=== PATIENT | female | born 1940 | race African-American/Black ===

== ENCOUNTER 2017-12-05 07:43 | Day surgery (SDC) | payer MEDICARE, BC ==
[~2017-12-05] VITALS: Ht 160 cm; Wt 63.5 kg
--- NOTE | ~2017-12-05 | OP ---
PATIENT NAME: CLAUDIO KUO MEDICAL RECORD: [id number] :42 LOCATION:D.OPS ADMISSION DATE: SURGEON: MADALYN CHEUNG MD DATE OF OPERATION: 12/05/2017 REFERRING PHYSICIAN: Miranda Ca MD PREOPERATIVE DIAGNOSIS: Chronic kidney disease IV. POSTOPERATIVE DIAGNOSIS: Chronic kidney disease IV. OPERATION PERFORMED: Creation of a left brachiobasilic Mark type AV fistula as the first of 2 planned operations to construct a brachial to translocated basilic vein AV fistula. SURGEON: Madalyn Cheung MD ANESTHESIA: Regional block and general anesthesia per Dr. Nina and SOUND CUTTER. PREOPERATIVE NOTE: This 77-year-old female patient has chronic renal disease and it is assumed that she is going to require dialysis soon. She was referred for dialysis access and she is brought to the operating room at this time with plans to construct an AV fistula in her left arm. She has had vein mapping and I think it is likely will need to do a brachial to basilic vein fistula, although brachiocephalic as possible. Under anesthesia in supine position, the patient was prepped and draped in sterile manner. Nitroglycerin paste was applied to the skin of the arm and forearm and a [place] drain was used as a proximal venous tourniquet. I performed ultrasound and noted that the cephalic vein was smaller than the basilic but still potentially usable. It was fairly large in the forearm, but the radial artery was small. Also, unfortunately, the median cubital vein had been used this morning by the lab for preop lab vena puncture. The basilic vein was therefore more attractive having not been just recently traumatized. I made a transverse incision and exposed the basilic vein and the brachial artery. The artery was controlled with doubly looped Silastic tapes. It was opened and flushed with heparinized saline. The vein was dissected from the surrounding tissues and it was ligated distally at the junction of the median antebrachial vein and median cubital vein. The vein was then transected and bevelled. It was flushed with heparinized saline and treated with topical papaverine. An atraumatic clamp was used to prevent backbleeding. The vein was then anastomosed end of vein to side of artery with running 7-0 Prolene and when that was completed and the occluding loops and clamps were released, excellent flow was established in this new fistula. The suture line was hemostatic. There was good pulsatile continuous flow in the proximal brachial artery and within the graft and there was a pulsatile high resistance flow in the distal brachial artery and in the radial artery at the wrist. There was a significant diminishment and amplitude and pulsatility at the wrist with occlusion of the graft, but there was maintenance of pulsatile Doppler flow and there was really no evidence of ischemia. The wound was irrigated with Ancef, gentamicin solution and infiltrated and irrigated with 0.25% Marcaine without epinephrine. Wound closure was completed with interrupted inverted 3-0 Vicryl and running intracuticular 4-0 Stratafix and Dermabond glue. The wound was dressed with Maxorb Ag, Tegaderm, and Cavilon skin prep. The patient was awakened and taken to the recovery room. OPERATIVE REPORT [id number] CLAUDIO KUO She will be allowed to go home later today and return to see me in my office in 2 weeks. She is to continue all of her same medications, diet, activities, etc. She can leave the initial operative dressing alone intact until she comes back to see me in my office in 2 weeks. She is advised to use ice off and on on the area of the incision and to take Tylenol p.r.n. for pain. TRANSINT:[id number] Voice Confirmation ID: [id number] DOCUMENT ID: [id number] MADALYN CHEUNG MD at 1645 CC: MIRANDA CA MD [id number] DICTATION DATE: 12/05/17 1427 COOLER CONVEYOR LOADER: 12/05/17 1631 REG [facility] [address] [place] [address]
[2017-12-05 07:59] LABS: BASOPHILS 0.3 % (0-2); EOSINOPHILS 3.5 % (0-7); HEMATOCRIT 28.1 % (36.0-48.0); HEMOGLOBIN 8.9 g/dL (12-16); IMMATURE GRANULOCYTES 0.3 % (0-5); LYMPHOCYTES 14.6 % (15-50); MCH 26.9 pg (26.0-34.0); MCHC 31.7 g/dL (31.0-37.0); MCV 84.9 fL (80.0-100.0); MEAN PLATELET VOLUME 9.2 fL (7.4-10.4); MONOCYTES 8.8 % (2-11); NEUTROPHILS 72.5 % (40-80); PLATELET COUNT 378 10x3/uL (130-400); RBC 3.31 10x6/uL (4.00-5.40); RDW 15.3 % (11.5-14.5); WBC 10.9 10x3/uL (4.8-10.8)
[2017-12-05 08:10] LABS: ANION GAP 18.9 mmol/L (8-16); CALCIUM 7.9 mg/dL (8.5-10.1); CARBON DIOXIDE 18.2 mmol/L (21.0-32.0); CREATININE - SERUM 8.4 mg/dL (0.6-1.3); POTASSIUM - SERUM 4.1 mmol/L (3.5-5.1)
[2017-12-05 08:24] LABS: INR 1.13 (0.85-1.17); PROTIME 14.1 SECONDS (11.6-15.0)
[2017-12-05] MEDS ORDERED: PRINIVIL20 MG PO (09:37)
[2017-12-05] MEDS ORDERED: COREG25 MG PO (09:38)
[2017-12-05] MEDS ORDERED: HYDRALAZINE HCL50 MG PO (09:38)
[2017-12-05] MEDS ORDERED: CILOSTAZOL50 MG PO (09:38)
[2017-12-05] MEDS ORDERED: GLIMEPIRIDE2 MG PO (09:39)
[2017-12-05] MEDS ORDERED: SYNTHROID25 MCG PO (09:40)
[2017-12-05] MEDS ORDERED: FUROSEMIDE20 MG (09:40)
[2017-12-05] MEDS ORDERED: ZETIA10 MG PO (09:41)
[2017-12-05] MEDS ORDERED: PLAVIX75 MG PO (09:41)
[2017-12-05] MEDS ORDERED: NIASPAN500 MG PO (09:42)
[2017-12-05 09:47] VITALS: BP 139/64; Ht 160 cm; Wt 63.5 kg
== END 2017-12-05 16:25 | disposition home or self-care (01) ==
LOC: D.OPS 07:43
PROVIDERS: Internal Medicine Nephrology
DX: N18.4 Chronic kidney disease, stage 4 (severe) (principal); Z01.812 Encounter for preprocedural laboratory examination

== ENCOUNTER 2018-02-17 06:50 | Day surgery (SDC) | payer MEDICARE, BC ==
[~2018-02-17] VITALS: Ht 312.4 cm; Wt 61.2 kg
--- NOTE | ~2018-02-17 | MORECARE ---
CASE MANAGEMENT DISCHARGE SUMMARY PATIENT: CLAUDIO KUO UNIT: [id number] ADM DATE: 02/17/18 AGE: 77 : 41 SEX: F ROOM/BED: D.1218 AUTHOR: AMRITA GILES PHYSICIAN: REFERRING PHYSICIAN: MIRANDA BARNARD MD DATE OF SERVICE: 02/18/18 Discharge Plan Patient Name: CLAUDIO KUO Facility: [facility]:[place] : 1940 Planned Disposition: Home with Home Health Anticipated Discharge Date: 02/18/18 Discharge Date: Expected LOS: 15 Initial Reviewer: [id number] Initial Review Date: 02/18/2018 Generated: 02/18/18 6:16 pm Comments DCP- Discharge Planning Updated by [email or web address]: Tino Harkins on 02/18/18 4:[address] Patient Name: CLAUDIO KUO Admission Status: Elective Accout number: [id number] Admission Date: 02-03-2018 : 1940 Admission Diagnosis: Attending: MIRANDA BARNARD Current LOS: 15 Anticipated DC Date: 02-18-2018 Planned Disposition: Home with Home Health Primary Insurance: MEDICARE A & B PLANNED EXTERNAL PROVIDER: [facility] Discharge Planning Comments: CM RECEIVED HOME HEALTH ORDER, MET WITH PT IN ROOM TO DISCUSS DISCHARGE PLANNING AND NEEDS. PT REPORTS LIVING AT HOME INDEPENDENTLWITH HER ADULT DAUGHTER IN [place] FOR NOW. PT HAS CANE AND WHEELCHAIR WITH NO MEDICAL EQUIPMENT PROVIDER PREFERENCE. PT HAS [facility] THAT ASSISTED WITH GETTING THE WHEELCHAIR AFTER THEIR FIRST VISIT BUT NEVER CAME BACK. CM DISCUSSED AVAILABILITY OF HOME HEALTH, REHAB SERVICES AND MEDICAL EQUIPMENT. PT WOULD LIKE [facility] IF THEY WILL COME BACK OUT AND IF NOT, NOT PREFERENCE ON COMPANY. CHOICE LETTER SIGNED. PT REPORTS HER DAUGHTER WILL PICK HER UP FOR DISCHARGE HOME. CM CALLED [facility], SPOKE TO ALICIA WHO REPORTS PT IS NOT ACTIVE WITH THEM AND THEY DO NOT HAVE NURSING AVAILABILITY. CM CALLED [facility], , SPOKE TO JULY WHO DID NOT THINK DRAIN AND WOUND CARE WOULD BE AN ISSUE AND THEY DO HAVE NURSING AVAILABILITY FOR ADMIT TOMORROW. CM FAXED REFERRAL TO [facility] AT [phone]. PERSONAL DRIVER NOTIFIED. Reiki Practitioner: Tino Harkins Appended by Tino Harkins on 02/18/2018 15:09 MILITARY EQUIPMENT SPECIALIST: FOR DISCHARGE, FAX DISCHARGE INFORMATION TO [facility] [employer] AT [phone]. JACKIE HARKINS CASE MANAGEMENT Appended by Tino Harkins on 02/18/2018 17:08 MILITARY EQUIPMENT SPECIALIST: CM FAXED DISCHARGE INFORMATION AND H& P TO [employer] [employer] AT [phone]. PT NOTIFIED. CM SPOKE TO JULY OF [facility] [employer] WHO REPORTS THEY WILL ADMIT ON FRIDAY; CM SPOKE TO BEDSIDE NURSE WHO WILL INSTRUCT PT AND DAUGHTER ON DRAIN CARE AND HOME HEALTH ADMIT FRIDAY SHOULD BE OK. CM SPOKE TO PT WHO IS IN AGREEMENT WITH PLAN. NO FURTHER NEEDS IDENTIFIED. TINO HARKINS CASE MANAGEMENT DCPIA - Discharge Planning Initial Assessment Updated by COREY: Tino Harkins on 02/18/18 2:53 pm * Is the patient Alert and Oriented? Yes * How many steps to enter\exit or inside your home? * PCP DR. VASQUEZ AT [facility] IN [place] * Pharmacy [facility] AT DISCHARGE OR [facility] IN [place] * Preadmission Environment Home with Family * ADLs Independent * Equipment Cane Wheelchair * Other Equipment NO MEDICAL EQUIPMENT PROVIDER PREFERENCE * List name and contact numbers for known caregivers / representatives who currently or will assist patient after discharge: JANET KUO, DTR, [phone] [address] WITH DTR: [phone], [place] [phone] * Community resources currently utilized Other * Please name any agencies selected above. OUTPATIENT DAILYSIS, [facility] IN [place], [facility], 3PM, [facility] * Additional services required to return to the preadmission environment? Yes * Can the patient safely return to the preadmission environment? Yes * Has this patient been hospitalized within the prior 30 days at any hospital? No Coverage Notice Reviewer: [id number] Rahel Harkins Notice Issued Date-Time: 02/18/2018 10:00 Notice Type: Patient Choice Letter Notice Delivered To: Patient Relationship to Patient: Language Specialist Name: Delivery Method: HAND - Hand Delivered Chela Days: Prior Verbal Notification: Recipient Understood Notice: Yes Recipient Signature: Yes Med Rec Note Co-signed by Attending: Coverage Notice Comment: [facility] OR ANY OTHER ACCEPING AGENCY IN [place] Last DP export: 02/18/18 4:08 Patient Name: CLAUDIO KUO Page [phone] at 1717 All edits/amendments must be made on the electronic document DICTATION DATE: 02/18/181715 GROUP INSURANCE SPECIALIST: GRETCHEN 02/18/181715 RPT#: [id number] DC DATE: STATUS: REG [facility] [address] [place] [address] END OF REPORT
--- NOTE | ~2018-02-17 | MORECARE ---
CASE MANAGEMENT DISCHARGE SUMMARY PATIENT: CLAUDIO KUO UNIT: [id number] ADM DATE: 02/17/18 AGE: 77 : 41 SEX: F ROOM/BED: D.0003 AUTHOR: CHAN,DOC PHYSICIAN: REFERRING PHYSICIAN: MIRANDA BARNARD MD DATE OF SERVICE: 02/18/18 Discharge Plan Patient Name: CLAUDIO KUO Facility: [facility]:[place] : 1940 Planned Disposition: Home with Home Health Anticipated Discharge Date: 02/18/18 Discharge Date: Expected LOS: 15 Initial Reviewer: [email or web address] Initial Review Date: 02/18/2018 Generated: 02/18/18 3:54 pm DCPIA - Discharge Planning Initial Assessment Updated by [email or web address]: Tino Michael on 02/18/18 2:53 pm * Is the patient Alert and Oriented? Yes * How many steps to enter\exit or inside your home? * PCP DR. VASQUEZ AT [facility] IN [place] * [facility] AT DISCHARGE OR [facility] IN [place] * Preadmission Environment Home with Family * ADLs Independent * Equipment Cane Wheelchair * Other Equipment NO MEDICAL EQUIPMENT PROVIDER PREFERENCE * List name and contact numbers for known caregivers / representatives who currently or will assist patient after discharge: JANET KUO, DTR, [phone] [address]CHARGE [address]ESS WITH DTR: [phone] [facility] [address] [place], [place] [address] * Community resources currently utilized Other * Please name any agencies selected above. OUTPATIENT DAILYSIS, [facility] IN [place], [facility], [facility], [facility] * Additional services required to return to the preadmission environment? Yes * Can the patient safely return to the preadmission environment? Yes * Has this patient been hospitalized within the prior 30 days at any hospital? No External Providers External Provider: [facility] Next Contact Date: 02/18/2018 Service Request Date: Service Type: Resolution: Reviewer: Comments: Coverage Notice Reviewer: [id number] Rahel Michael Notice Issued Date-Time: 02/18/2018 10:00 Notice Type: Patient Choice Letter Notice Delivered To: Patient Relationship to Patient: Tool And Die Engineer Name: Delivery Method: HAND - Hand Delivered Chela Days: Prior Verbal Notification: Recipient Understood Notice: Yes Recipient Signature: Yes Med Rec Note Co-signed by Attending: Coverage Notice Comment: [facility] OR ANY OTHER ACCEPING AGENCY IN [place] Last DP export: 02/18/18 1:27 Patient Name: CLAUDIO KUO Page 16141 at 1454 All edits/amendments must be made on the electronic document DICTATION DATE: 02/18/181453 COAL OR ORE CONTROLLER: GRETCHEN 02/18/181453 RPT#: [id number] DC DATE: STATUS: REG [facility] [address] [place] [address] END OF REPORT
--- NOTE | ~2018-02-17 | MORECARE ---
CASE MANAGEMENT DISCHARGE SUMMARY PATIENT: CLAUDIO KUO UNIT: [id number] ADM DATE: 02/17/18 AGE: 77 : 41 SEX: F ROOM/BED: D.9002 AUTHOR: AMRITA GILES PHYSICIAN: REFERRING PHYSICIAN: MIRANDA BARNARD MD DATE OF SERVICE: 02/18/18 Discharge Plan Patient Name: CLAUDIO KUO Facility: [facility]:[place] : 1940 Planned Disposition: Home with Home Health Anticipated Discharge Date: 02/18/18 Discharge Date: Expected LOS: 15 Initial Reviewer: [id number] Initial Review Date: 02/18/2018 Generated: 02/18/18 4:11 pm Comments DCP- Discharge Planning Updated by [email or web address]: Tino Harkins on 02/18/18 2:[address] Patient Name: CLAUDIO KUO Admission Status: Elective Accout number: [id number] Admission Date: 02-03-2018 : 1940 Admission Diagnosis: Attending: MIRANDA BARNARD Current LOS: 15 Anticipated DC Date: 02-18-2018 Planned Disposition: Home with Home Health Primary Insurance: MEDICARE A & B PLANNED EXTERNAL PROVIDER: [facility] Discharge Planning Comments: CM RECEIVED HOME HEALTH ORDER, MET WITH PT IN ROOM TO DISCUSS DISCHARGE PLANNING AND NEEDS. PT REPORTS LIVING AT HOME INDEPENDENTLWITH HER ADULT DAUGHTER IN [place] FOR NOW. PT HAS CANE AND WHEELCHAIR WITH NO MEDICAL EQUIPMENT PROVIDER PREFERENCE. PT HAS [facility] THAT ASSISTED WITH GETTING THE WHEELCHAIR AFTER THEIR FIRST VISIT BUT NEVER CAME BACK. CM DISCUSSED AVAILABILITY OF HOME HEALTH, REHAB SERVICES AND MEDICAL EQUIPMENT. PT WOULD LIKE [facility] IF THEY WILL COME BACK OUT AND IF NOT, NOT PREFERENCE ON COMPANY. CHOICE LETTER SIGNED. PT REPORTS HER DAUGHTER WILL PICK HER UP FOR DISCHARGE HOME. CM CALLED [facility], SPOKE TO ALICIA WHO REPORTS PT IS NOT ACTIVE WITH THEM AND THEY DO NOT HAVE NURSING AVAILABILITY. CM CALLED [facility], , SPOKE TO JULY WHO DID NOT THINK DRAIN AND WOUND CARE WOULD BE AN ISSUE AND THEY DO HAVE NURSING AVAILABILITY FOR ADMIT TOMORROW. CM FAXED REFERRAL TO [facility] AT [phone]. BILLIARD TABLE MECHANIC NOTIFIED. Tobacco Dipper: Tino Harkins Appended by Tino Harkins on 02/18/2018 15:09 COW WASHER: FOR DISCHARGE, FAX DISCHARGE INFORMATION TO [facility] AT [phone]. JACKIE HARKINS, CASE MANAGEMENT DCPIA - Discharge Planning Initial Assessment Updated by [email or web address]: Tino Harkins on 02/18/18 2:53 pm * Is the patient Alert and Oriented? Yes * How many steps to enter\exit or inside your home? * PCP DR. VASQUEZ AT [facility] IN [place] * Pharmacy [facility] AT DISCHARGE OR [facility] IN [place] * Preadmission Environment Home with Family * ADLs Independent * Equipment Cane Wheelchair * Other Equipment NO MEDICAL EQUIPMENT PROVIDER PREFERENCE * List name and contact numbers for known caregivers / representatives who currently or will assist patient after discharge: JANET KUO, DTR, [phone] DISCHARGE AD[address]ESS WITH DTR: [phone] [address], [place]. [id number] * Community resources currently utilized Other * Please name any agencies selected above. OUTPATIENT DAILYSIS, [facility] IN [place], [facility], [facility], [facility] * Additional services required to return to the preadmission environment? Yes * Can the patient safely return to the preadmission environment? Yes * Has this patient been hospitalized within the prior 30 days at any hospital? No Coverage Notice Reviewer: [id number] - Tino Harkins Notice Issued Date-Time: 02/18/2018 10:00 Notice Type: Patient Choice Letter Notice Delivered To: Patient Relationship to Patient: Tracer Lathe Set Up Operator Name: Delivery Method: HAND - Hand Delivered Chela Days: Prior Verbal Notification: Recipient Understood Notice: Yes Recipient Signature: Yes Med Rec Note Co-signed by Attending: Coverage Notice Comment: [facility] OR ANY OTHER ACCEPING AGENCY IN [place] Last DP export: 02/18/18 1:54 Patient Name: TIMOTHY KUOARA Page [phone] at 1511 All edits/amendments must be made on the electronic document DICTATION DATE: 02/18/18 1510 SHEET ROCKER: GRETCHEN 02/18/18 1510 RPT#: [id number] ID DATE: STATUS: [facility] [address] [facility] [place] [address] END OF REPORT
--- NOTE | ~2018-02-17 | MORECARE ---
CASE MANAGEMENT DISCHARGE SUMMARY PATIENT: CLAUDIO KUO UNIT: [id number] ADM DATE: 02/17/18 AGE: 77 : 41 SEX: F ROOM/BED: D.8145 AUTHOR: AMRITA GILES PHYSICIAN: REFERRING PHYSICIAN: MIRANDA BARNARD MD DATE OF SERVICE: 02/18/18 Discharge Plan Patient Name: CLAUDIO KUO Facility: [facility]:[place] : 1940 Planned Disposition: Home with Home Health Anticipated Discharge Date: 02/18/18 Discharge Date: Expected LOS: 15 Initial Reviewer: [email or web address] Initial Review Date: 02/18/2018 Generated: 02/18/18 6:08 pm Comments DCP- Discharge Planning Updated by [email or web address]: Tino Harkins on 02/18/18 2:[address] Patient Name: CLAUDIO KUO Admission Status: Elective Accout number: [id number] Admission Date: 02-03-2018 : 1940 Admission Diagnosis: Attending: MIRANDA BARNARD Current LOS: 15 Anticipated DC Date: 02-18-2018 Planned Disposition: Home with Home Health Primary Insurance: MEDICARE A & B PLANNED EXTERNAL PROVIDER: [facility] Discharge Planning Comments: CM RECEIVED HOME HEALTH ORDER, MET WITH PT IN ROOM TO DISCUSS DISCHARGE PLANNING AND NEEDS. PT REPORTS LIVING AT HOME INDEPENDENTLWITH HER ADULT DAUGHTER IN [place] FOR NOW. PT HAS CANE AND WHEELCHAIR WITH NO MEDICAL EQUIPMENT PROVIDER PREFERENCE. PT HAS [facility] THAT ASSISTED WITH GETTING THE WHEELCHAIR AFTER THEIR FIRST VISIT BUT NEVER CAME BACK. CM DISCUSSED AVAILABILITY OF HOME HEALTH, REHAB SERVICES AND MEDICAL EQUIPMENT. PT WOULD LIKE [facility] IF THEY WILL COME BACK OUT AND IF NOT, NOT PREFERENCE ON COMPANY. CHOICE LETTER SIGNED. PT REPORTS HER DAUGHTER WILL PICK HER UP FOR DISCHARGE HOME. CM CALLED [facility], SPOKE TO ALICIA WHO REPORTS PT IS NOT ACTIVE WITH THEM AND THEY DO NOT HAVE NURSING AVAILABILITY. CM CALLED [facility], , SPOKE TO JULY WHO DID NOT THINK DRAIN AND WOUND CARE WOULD BE AN ISSUE AND THEY DO HAVE NURSING AVAILABILITY FOR ADMIT TOMORROW. CM FAXED REFERRAL TO [facility] AT [phone]. COMMERCIAL SALES MANAGER NOTIFIED. Seafood Service Team Member: Tino Harkins Appended by Tino Harkins on 02/18/2018 15:09 ALUM PLANT SUPERVISOR: FOR DISCHARGE, FAX DISCHARGE INFORMATION TO [facility] AT [phone]. JACKIE HARKINS, CASE MANAGEMENT DCPIA - Discharge Planning Initial Assessment Updated by [email or web address]: Tino Harkins on 02/18/18 2:53 pm * Is the patient Alert and Oriented? Yes * How many steps to enter\exit or inside your home? * PCP DR. VASQUEZ AT [facility] IN [place] * Pharmacy [facility] AT DISCHARGE OR [facility] IN [place] * Preadmission Environment Home with Family * ADLs Independent * Equipment Cane Wheelchair * Other Equipment NO MEDICAL EQUIPMENT PROVIDER PREFERENCE * List name and contact numbers for known caregivers / representatives who currently or will assist patient after discharge: JANET KUO, DTR, [phone] DISCHARGE AD[address]ESS WITH DTR: [id number] [address], [place]. [phone] * Community resources currently utilized Other * Please name any agencies selected above. OUTPATIENT DAILYSIS, [facility] IN [place], [facility], [facility], [facility] * Additional services required to return to the preadmission environment? Yes * Can the patient safely return to the preadmission environment? Yes * Has this patient been hospitalized within the prior 30 days at any hospital? No Coverage Notice Reviewer: [id number] - Tino Harkins Notice Issued Date-Time: 02/18/2018 10:00 Notice Type: Patient Choice Letter Notice Delivered To: Patient Relationship to Patient: Bus And Trolley Dispatcher Name: Delivery Method: HAND - Hand Delivered Chela Days: Prior Verbal Notification: Recipient Understood Notice: Yes Recipient Signature: Yes Med Rec Note Co-signed by Attending: Coverage Notice Comment: [facility] OR ANY OTHER ACCEPING AGENCY IN [place] Last DP export: 02/18/18 2:11 Patient Name: TIMOTHY KUOARA Page [phone] at 1708 All edits/amendments must be made on the electronic document DICTATION DATE: 02/18/181706 MEDIA/INSTRUCTIONAL DESIGNER: GRETCHEN 02/18/181706 RPT#: [id number] DC DATE: STATUS: [facility] [address] [facility] [place] [address] END OF REPORT
--- NOTE | ~2018-02-17 | OP ---
PATIENT NAME: NATASHA SALEEM MEDICAL RECORD: [id number] :42 LOCATION:D.OPS ADMISSION DATE: SURGEON: MADALYN CHEUNG MD DATE OF OPERATION: 02/17/2018 REFERRING PHYSICIAN: Miranda Ca MD SURGEON: Madalyn Cheung MD ANESTHESIA: Regional block plus general with LMA per SERVICE ADMINISTRATOR OPERATION PERFORMED: Second stage creation of left arm brachial artery to translocated basilic vein AV fistula. PREOPERATIVE NOTE: Natasha Saleem is a 77-year-old -Portuguese female from [place], [place]. She has end-stage renal disease and has begun dialysis via a right IJ V TDC. She has had a first stage creation of Mark AV fistula between the brachial artery and the basilic vein, and now has returned to the operating room as planned to convert this to a translocated basilic vein fistula. Under anesthesia, in supine position, the patient was prepped and draped in sterile manner. An incision was placed over the course of the basilic vein from the area of the antecubital anastomosis up to the axilla. The vein was mobilized, dividing tributaries between Vicryl ties and Hemoclips. Hemostasis was used sparingly during the procedure and bleeding was minimal. Nerves were spared as possible. The vein was treated with topical papaverine and kept moist with saline. A marking pen was used to leave a line on the upper surface of the vein for subsequent orientation after tunneling. A subcutaneous tunnel was created for placement of the vein in a much more superficial subcutaneous level and much more anteriorly so it should be easy to access. The vein was clamped, bevelled, and transected near the arterial anastomosis. The vein was then passed through the tunnel back down to the antecubital space where it properly oriented. An end-to-end anastomosis was carried out with running 7-0 Prolene, and when completed with release of the occluding vascular loops and clamps, excellent flow immediately developed within the fistula. The suture line was hemostatic without any significant pursestringing. The patient had oozed continuously during the procedure and this was greatly improved after administration of 20 mcg of DDAVP. I left a 10-mm flat fluted J-P-type drain in the wound, brought out in distally through a separate stab incision, and attached to closed bulb suction. The wound was closed in layers with interrupted inverted 3-0 Vicryl and running intracuticular 4-0 Stratafix. The wound was sealed with Dermabond glue and dressed with Maxorb Ag and Tegaderm with Cavilon skin prep. Because she had had a regional block, the arm was placed in a sling, which she is to remove tomorrow and resume use of her arm as tolerated. Blood loss during the operation was perhaps 50 cc and unreplaced. All sponges, instruments, and needles were accounted for. One drain was used as I described and no surgical specimen was submitted for histopathology. PLAN: The patient will be discharged to home today with a prescription for tramadol 50, #20, one p.o. q. 4 hours p.r.n. for pain, no refills. She is to resume her home medications, diet, and activities; and usual dialysis schedule. We will consult home health to help by seeing her daily, changing dressing as OPERATIVE REPORT [id number] NATASHA SALEEM needed, and keeping watch and supervising the J-P drain care. Our nurses here in outpatient will educate the patient and her family as well then as her home health, educating them as to the proper care of her J-P drain. Her J-P drain should be removed when its volume of drainage is reduced to less than 30 cc per 24-hour period. Today is Friday, the week prior to , which is next Friday. It will be probably very difficult for the patient to be seen in my office until the following week, so it may be that the drain will either have to stay in that long, which is not ideal; or perhaps home health or her dialysis unit could remove the drain when it is time. I have given the home health agency my cell phone number so they can contact me at any time between now and the patient's return to see me in the office. TRANSINT:[id number] Voice Confirmation ID: [id number] DOCUMENT ID: [id number] CC: [facility] MADALYN CHEUNG MD at 2045 CC: MIRANDA CA MD and [facility] [id number] DICTATION DATE: 02/17/18 1546 FRONT END ENGINEER: 02/17/181921 [facility] 02/18/18 [facility] [address] [place] [address]
--- NOTE | ~2018-02-17 | MORECARE ---
CASE MANAGEMENT DISCHARGE SUMMARY PATIENT: CLAUDIO KUO UNIT: [id number] ADM DATE: 02/17/18 AGE: 77 : 41 SEX: F ROOM/BED: D.2113 AUTHOR: AMRITA GILES PHYSICIAN: REFERRING PHYSICIAN: MIRANDA BARNARD MD DATE OF SERVICE: 02/18/18 Discharge Plan Patient Name: CLAUDIO KUO [facility] [facility] 1940 Planned Disposition: Anticipated Discharge Date: Discharge Date: Expected LOS: 0 Initial Reviewer: [email or web address] Initial Review Date: 02/18/2018 Generated: 02/18/18 3:27 pm Patient Name: CLAUDIO KUO Page 48698 at 1427 All edits/amendments must be made on the electronic document DICTATION DATE: 02/18/181425 SUPERVISOR PACKING ROOM: GRETCHEN 02/18/18 142 RPT#: [id number] DC DATE: STATUS: REG [facility] [address] [place] [address] END OF REPORT
[~2018-02-17 06:50] MED LIST: CILOSTAZOL50 MG PO; COREG25 MG PO; FUROSEMIDE20 MG; GLIMEPIRIDE2 MG PO; HYDRALAZINE HCL50 MG PO; NIASPAN500 MG PO; PLAVIX75 MG PO; PRINIVIL20 MG PO; SYNTHROID25 MCG PO; ZETIA10 MG PO
[2018-02-17 07:11] LABS: BASOPHILS 0.3 % (0-2); EOSINOPHILS 4.1 % (0-7); HEMATOCRIT 38.3 % (36.0-48.0); HEMOGLOBIN 11.9 g/dL (12-16); IMMATURE GRANULOCYTES 0.2 % (0-5); LYMPHOCYTES 15.3 % (15-50); MCH 28.2 pg (26.0-34.0); MCHC 31.1 g/dL (31.0-37.0); MCV 90.8 fL (80.0-100.0); MEAN PLATELET VOLUME 9.2 fL (7.4-10.4); MONOCYTES 8.7 % (2-11); NEUTROPHILS 71.4 % (40-80); PLATELET COUNT 344 10x3/uL (130-400); RBC 4.22 10x6/uL (4.00-5.40); RDW 14.4 % (11.5-14.5); WBC 9.2 10x3/uL (4.8-10.8)
[2018-02-17 07:26] LABS: APTT 29.5 SECONDS (22.8-39.4); INR 1.04 (0.85-1.17); PROTIME 13.1 SECONDS (11.6-15.0)
[2018-02-17 07:27] LABS: ANION GAP 15.1 mmol/L (8-16); CALCIUM 8.7 mg/dL (8.5-10.1); CARBON DIOXIDE 27.2 mmol/L (21.0-32.0); CREATININE - SERUM 3.9 mg/dL (0.6-1.3); POTASSIUM - SERUM 4.3 mmol/L (3.5-5.1)
[2018-02-17] MEDS ORDERED: ZYLOPRIM100 MG PO (09:27)
[2018-02-17] MEDS ORDERED: CARTIA XT180 MG PO (09:29)
[2018-02-17] MEDS ORDERED: CATAPRES0.1 MG PO (09:30)
[2018-02-17] MEDS ORDERED: RENVELA800 MG PO (09:30)
[2018-02-17] MEDS ORDERED: VITAMIN D5000 UNIT PO (09:31)
[2018-02-17 09:41] VITALS: BMI 23.6
[2018-02-17 21:09] VITALS: BP 210/68
[2018-02-18 01:05] VITALS: BP 160/56; Ht 312.4 cm; Wt 61.2 kg
[2018-02-18 04:00] VITALS: BP 135/57
[2018-02-18 09:00] VITALS: BP 131/63
[2018-02-18 12:18] VITALS: BP 101/70
[2018-02-18] MEDS ORDERED: HYDROCODON-ACE1 EAC7 PO (15:12)
[2018-02-18] MEDS ORDERED: ULTRAM50 MG PO (15:12)
[2018-02-18 18:44] VITALS: BP 114/86
== END 2018-02-18 21:17 | disposition home or self-care (01) ==
LOC: D.OPS 06:50 → D.M2 18:50 → D.OPS 02-18 21:17
PROVIDERS: Surgery
DX: N18.6 End stage renal disease (principal); Z99.2 Dependence on renal dialysis; Z01.812 Encounter for preprocedural laboratory examination

== ENCOUNTER 2018-09-18 14:51 | Inpatient (IN) | payer MEDICARE, BC ==
[~2018-09-18] VITALS: Ht 152.4 cm; Wt 60.0 kg
[~2018-09-18 14:51] MED LIST changes: +CARTIA XT180 MG PO; +CATAPRES0.1 MG PO; +HYDROCODON-ACE1 EAC7 PO; +RENVELA800 MG PO; +ULTRAM50 MG PO; +VITAMIN D5000 UNIT PO; +ZYLOPRIM100 MG PO
[2018-09-22 09:51] LABS: BASOPHILS 0.2 % (0-2); EOSINOPHILS 3.2 % (0-7); HEMOGLOBIN 11.6 g/dL (12-16); IMMATURE GRANULOCYTES 0.2 % (0-5); LYMPHOCYTES 16.2 % (15-50); MCH 29.4 pg (26.0-34.0); MCHC 33.1 g/dL (31.0-37.0); MCV 88.8 fL (80.0-100.0); MEAN PLATELET VOLUME 8.8 fL (7.4-10.4); MONOCYTES 8.3 % (2-11); NEUTROPHILS 71.9 % (40-80); PLATELET COUNT 306 10x3/uL (130-400); RBC 3.94 10x6/uL (4.00-5.40); RDW 13.8 % (11.5-14.5); WBC 12.4 10x3/uL (4.8-10.8)
[2018-09-22 09:57] LABS: INR 1.03 (0.85-1.17)
[2018-09-22 10:02] LABS: CARBON DIOXIDE 27.9 mmol/L (21.0-32.0); CREATININE - SERUM 4.6 mg/dL (0.6-1.3); POTASSIUM - SERUM 3.9 mmol/L (3.5-5.1)
[2018-09-22] MEDS ORDERED: PHOSLO667 MG PO (11:45)
[2018-09-22] MEDS ORDERED: RENA-VITE TABL0.8 MG PO (11:45)
[2018-09-22] MEDS ORDERED: STOOL SOFTENER100 M1 PO (11:46)
[2018-09-22] MEDS ORDERED: [UNRECOGNIZED DRUG - OTHER] PO (11:49)
[2018-09-22 12:01] VITALS: BMI 31.9
--- NOTE | 2018-09-22 21:50 | NUR ---
ARIVED VIA BED FROM OR RECOVERY SKIN WARM AND DRY IV CLAMPED AND LCTA BANDAGE TO LEFT ARM IS SMALL DRY AND INTACT DENIES PAIN AT THIS TIME BUT DOES EXPRESS DESIRE TO EAT BED LOW AND LOCKED AND CALL LIGHT PROVIDED
[2018-09-23] VITALS: BP 172/61
--- NOTE | 2018-09-23 01:24 | NUR ---
I have reviewed this patient and I concur with the Shift Assessment completed by the Licensed Practical Nurse today this shift.
[2018-09-23 04:00] VITALS: BP 161/74
[2018-09-23 04:01] VITALS: BP 172/61; Ht 152.4 cm; Wt 60.0 kg
--- NOTE | 2018-09-23 07:05 | NUR ---
REPORT RECEIVED. ALERT SALINE LOCK INTACT. DENIES ANY CURRENT NEEDS CL IN REACH. RESP EVEN WITHOUT LABOR. PLEASANT AND SMILING. CAREPLAN REVIEW DONE WITH SAFETY PRECAUTIONS IN PLACE. BED IN LOWEST POSITION AND LOCKED.
[2018-09-23 08:40] VITALS: BP 186/74
[2018-09-23 12:27] VITALS: BP 217/87
--- NOTE | 2018-09-23 13:22 | NUR ---
DR QUEZADA HERE AT THIS TIME AND WAS NOTIFIED OF INCREASED BLOOD PRESSURES. HE ORDERED HER HOME B/P MEDS AND THEY WERE GIVEN AT THIS TIME
--- NOTE | 2018-09-23 14:00 | NUR ---
SHE WENT DOWN TO DIALYSIS AT THIS TIME VIA W/C. CONSTIPATION HAS RESOLVED WITH USE OF SUPPOSITORY. NO FURTHER C/O VOICED.
--- NOTE | 2018-09-23 16:48 | NUR ---
DIALYSIS REPORT WAS CALLED TO ME WITH REMOVAL OF 2 LITERS. B/P 152/64 WITH HR OF 81. SHE STATED A LITTLE BLOOD WAS NOTED FROM SURGICAL SITE AND TO CHECK IN UPON HER RETURN. STAFF AWARE SHE IS DONE AND READY TO COME BACK
--- NOTE | 2018-09-23 17:00 | NUR ---
RETURNED FROM DIALYSIS. DRESSING CHANGE DONE TO LEFT ARM. MINIMAL BLEEDING AND BLOOD CLOT NOTED AT SITE. SHE IS EATING SUPPER WITH NO C/O
--- NOTE | 2018-09-23 18:00 | NUR ---
DISCHARGE PAPERS EXPLAINED TO HER AND COPY PROVIDED TO HER. SALINE LOCK TO BE REMOVED WHEN HER DAUGHTER COMES. ONCOMING NURSE IS AWARE. HER DAUGHTER HAD CALLED AND SHE IS AWARE OF HER DISCHARGE. SHE VOICES NO C/O.
--- NOTE | 2018-09-23 19:31 | NUR ---
PT IN CHAIR AT BEDSIDE. DENIES NEEDS AT THIS TIME.
--- NOTE | 2018-09-23 20:37 | NUR ---
PT DAUGHTER ARRIVED TO TAKE PT HOME. PT LEFT FLOOR AT THIS TIME VIA WHEEL CHAIR.
--- NOTE | 2018-09-24 07:23 | MORECARE ---
CASE MANAGEMENT DISCHARGE SUMMARY PATIENT: CLAUDIO KUO UNIT: [id number] ADM DATE: 09/22/18 AGE: 78 : 41 SEX: F ROOM/BED: D.2111 AUTHOR: AMRITA GILES PHYSICIAN: REFERRING PHYSICIAN: MIRANDA BARNARD MD DATE OF SERVICE: 09/24/18 Discharge Plan Patient Name: CLAUDIO KUO [facility] [facility] 1940 Planned Disposition: Home Anticipated Discharge Date: 09/23/18 Discharge Date: 09/23/2018 Expected LOS: 1 Initial Reviewer: [email or web address] Initial Review Date: 09/24/2018 Generated: 09/24/18 8:23 am Patient Name: CLAUDIO KUO Page 52224 at 0723 All edits/amendments must be made on the electronic document DICTATION DATE: 09/24/18722 PROTECTION MGR: GRETCHEN 09/24/18722 RPT#: [id number] DC DATE:09/23/18 STATUS: DIS IN [facility] [address] [place] [address] END OF REPORT
== END 2018-09-23 20:38 | disposition home or self-care (01) | DRG 252 ==
LOC: D.M2 09-22 09:23 → D.SDCHOLD 09-22 09:23 → D.M2 09-22 21:38
PROVIDERS: Surgery; ADMIT Internal Medicine Nephrology; ATTEND Internal Medicine Nephrology
PROC: 03V Upper Arteries, Restriction (ICD-10-PCS; 2018-09-22)
PROC: 037Y3ZZ Dilation of Upper Artery, Percutaneous Approach (ICD-10-PCS; 2018-09-22)
PROC: B31J1ZZ Fluoroscopy of Left Upper Extremity Arteries using Low Osmolar Contrast (ICD-10-PCS; 2018-09-22)
PROC: B51W1ZZ Fluoroscopy of Dialysis Shunt/Fistula using Low Osmolar Contrast (ICD-10-PCS; principal; 2018-09-22 12:00)
DX: T82.898A Other specified complication of vascular prosthetic devices, implants and grafts, initial encounter (principal); N18.6 End stage renal disease; I12.0 Hypertensive chronic kidney disease with stage 5 chronic kidney disease or end stage renal disease; Y83.8 Other surgical procedures as the cause of abnormal reaction of the patient, or of later complication, without mention of misadventure at the time of the procedure; E11.22 Type 2 diabetes mellitus with diabetic chronic kidney disease; Z99.2 Dependence on renal dialysis

== ENCOUNTER 2018-10-09 07:45 | Day surgery (SDC) | payer MEDICARE, BC ==
[~2018-10-09] VITALS: Ht 157.5 cm; Wt 61.2 kg
[~2018-10-09 07:45] MED LIST changes: +PHOSLO667 MG PO; +RENA-VITE TABL0.8 MG PO; +STOOL SOFTENER100 M1 PO; +[UNRECOGNIZED DRUG - OTHER] PO
[2018-10-09 09:02] LABS: BASOPHILS 0.2 % (0-2); EOSINOPHILS 3.6 % (0-7); HEMATOCRIT 34.4 % (36.0-48.0); HEMOGLOBIN 11.3 g/dL (12-16); IMMATURE GRANULOCYTES 0.2 % (0-5); LYMPHOCYTES 17.4 % (15-50); MCH 29.8 pg (26.0-34.0); MCHC 32.8 g/dL (31.0-37.0); MCV 90.8 fL (80.0-100.0); MEAN PLATELET VOLUME 8.4 fL (7.4-10.4); MONOCYTES 7.1 % (2-11); NEUTROPHILS 71.5 % (40-80); PLATELET COUNT 262 10x3/uL (130-400); RBC 3.79 10x6/uL (4.00-5.40); RDW 15.5 % (11.5-14.5); WBC 9.6 10x3/uL (4.8-10.8)
[2018-10-09 09:08] LABS: ANION GAP 14.1 mmol/L (8-16); CALCIUM 9.3 mg/dL (8.5-10.1); CARBON DIOXIDE 26.9 mmol/L (21.0-32.0); CREATININE - SERUM 4.9 mg/dL (0.6-1.3)
[2018-10-09 09:54] LABS: APTT 28.1 SECONDS (22.8-39.4); INR 1.02 (0.85-1.17); PROTIME 12.9 SECONDS (11.6-15.0)
[2018-10-09 09:57] VITALS: Ht 157.5 cm; Wt 61.2 kg
--- NOTE | 2018-10-09 14:44 | NUR ---
1410-REC'D FROM RR. DROWSY, EASILY AROUSED WITH VERBAL STIMULI. VSS. FISTULA TO RIGHT ARM-ABLE TO FEEL THRILL AND ASCULATE BRUIT. HEMOSPLIT TO RIGHT SUBCLAVIAN IN PLACE.
--- NOTE | 2018-10-09 14:48 | NUR ---
1445-VSS. DENIES COMPLAINTS, VSS. DRINKING WATER.
--- NOTE | 2018-10-09 17:55 | NUR ---
RIGHT HAND PIV DC'D WITH TIP INTACT, PATIENT WALKING AROUND ROOM, SLIGHTLY NAUSEATED BUT NO EMESIS. AWAITING DAUGHTER TO PICK PATIENT UP, DAUGHTER HAS PATIENT'S CLOTHING THE PLAN PREOP WAS FOR PATIENT TO BE ADMITTED OVERNIGHT. DAUGHTER IS AT WORK
--- NOTE | 2018-10-09 18:30 | NUR ---
PATIENT SIPPING APPLE JUICE, LYING IN BED. AWAKE, ALERT, DENIES COMPLAINTS. AWAITING DAUGHTER FOR ROTOFORMER BACKTENDER
--- NOTE | 2018-10-09 19:30 | NUR ---
PATIENT SLEEPING, SMALL AMOUNT BLOOD UNDER HEMOSPLIT, AMOUNT UNCHANGED SINCE IMMEDIATE POSTOP PERIOD. LEFT UPPER ARM DRESSING C/D/I, BRUIT AND THRILL POSITIVE. PATIENT EASILY AWAKENED. AWAITING DAUGHTER'S ARRIVAL FOR TRANSPORTATION HOME
--- NOTE | 2018-10-09 19:50 | NUR ---
DAUGHTER ARRIVES TO PICK PATIENT UP, DISCHARGE INSTRUCTIONS REVIEWED WITH PATIENT AND DAUGHTER. DAUGHTER'S QUESTIONS ANSWERED. DAUGHTER UNDERSTANDS THAT DR CHEUNG WISHES FOR FISTULA TO BE USED FOR DIALYSIS TMRW AND HEMOSPLIT ONLY TO BE USED IF FISTULA DOESN'T WORK AND DAUGHTER STATES SHE WILL HELP TO MAKE SURE THIS IS EXPRESSED CLEARLY TO DIALYSIS CENTER TOMORROW MORNING. DAUGHTER ASSISTING PATIENT TO DRESS IN PERSONAL CLOTHINNG
--- NOTE | 2018-10-09 20:20 | NUR ---
PATIENT DRESSED IN PERSONAL CLOTHING, DISCHARGED HOME VIA WHEELCHAIR TO PRIVATE VEHICLE WITH DAUGHTER
--- NOTE | 2018-10-13 14:30 | OP ---
PATIENT NAME: CLAUDIO SALEEM MEDICAL RECORD: [id number] :42 LOCATION:[facility] ADMISSION DATE: SURGEON: MADALYN CHEUNG MD DATE OF OPERATION: 10/09/2018 REFERRING PHYSICIAN: Miranda Ca MD [place] and also Dr. Juarez of [place]. PREOPERATIVE DIAGNOSES: Mechanical complication of left arm brachial artery to translocated basilic vein arteriovenous fistula with inadequate arterial inflow following a recent NINA banding procedure for steal syndrome. POSTOPERATIVE DIAGNOSES: Mechanical complication of left arm brachial artery to translocated basilic vein arteriovenous fistula with inadequate arterial inflow following a recent NINA banding procedure for steal syndrome. OPERATION PERFORMED: Percutaneous access of left arm AV fistula and fistulogram with balloon angioplasty of banded JA segment, then selective placement of the catheter in the left proximal brachial artery and performance of a selective brachial artery arteriogram. Then, ultrasound-guided insertion of a HemoSplit tunneled dialysis catheter under fluoroscopy via the right internal jugular vein. SURGEON: Madalyn Cheung MD PREOPERATIVE NOTE: Ms. Saleem is a very nice 78-year-old -[place]in[place]ian female whose home is in [place], [place]. She is on chronic hemodialysis and has been dialyzing now for some time with a left brachial artery to translocated basilic vein arteriovenous fistula. She had developed steal syndrome and a few weeks ago, I performed a NINA banding procedure, which relieved her symptoms. Since that time, she had gone to stay with her daughter in [place] and has been dialyzing in [place] there under supervision of her director private in [place], Dr. Juarez. I was notified yesterday that she was having fistula collapse with inadequate arterial inflow during dialysis. I saw her in the office yesterday and scheduled her to come in today as an outpatient for a fistulogram and probably an angioplasty to attempt to dilate the recently banded segment and then placement of a tunneled dialysis catheter to assure dialysis access with adequate flows until we are certain that the left arm fistula is working properly. If it does not improve with the anticipated treatment today, then the next step would be to proximalize the arterial inflow with a PTFE graft from the axillary artery. PROCEDURE IN DETAIL: With the patient in supine position under general anesthesia with an LMA per NETWORK CONTROL OPERATORS SUPERVISOR, the left arm was prepped and draped in sterile manner. The fistula was examined with ultrasound and it was very easy then to see the area of stenosis resulting from the 2-0 Prolene tie from the NINA banding around the JA segment. This had been placed and tied over a 4 mm diameter balloon to achieve a precise 4 mm intraluminal diameter at that point. I then accessed her fistula in a retrograde direction using ultrasound guidance and micropuncture technique. This led up to insertion of a 6-Ivorian introducer. I then performed a retrograde fistulogram with compression of the outflow and demonstrated the JA segment stenosis due to banding. I then was able to pass a Glidewire distally across that stenosis in the JA segment and into the brachial artery. I passed the guidewire first distally and then subsequently with the use of an angled glide catheter, I passed the guidewire and catheter up in the OPERATIVE REPORT [id number] CLAUDIO SALEEM brachial artery. First I performed another antegrade fistulogram with the catheter in the fistula just proximal to the arterial anastomosis and confirmed precisely the location of the stenosis and then over a guidewire, I dilated the stenosis with a 5 mm diameter, Conquest angioplasty balloon inflated to 22 atmospheres and achieving full effacement. This was left inflated for 90 seconds before it was deflated and the balloon removed. A repeat fistulogram through the glide catheter in the JA segment demonstrated a definite improvement in the luminal diameter and I thought there was evidence of increased flow in the fistula visibly on the contrast study and also palpably. I passed the guidewire then and the catheter up in the brachial artery and performed a selective brachial arteriogram. This was necessary in order to determine if the patient's steal syndrome was still adequately corrected with a suitable arterial inflow into the forearm and hand. It appeared to be so there was good flow into the forearm. The catheter and guidewire were removed. I examined the patient with handheld continuous wave Doppler and demonstrated a good pulsatile radial artery flow with the fistula open and of course there was dramatic improvement in flow at the wrist with the fistula occluded. The 6-Ivorian sheath was removed and hemostasis obtained with a [id number] 4-0 Prolene suture and gentle direct pressure. The site was subsequently dressed with Ultrafoam, Tegaderm, and Cavilon skin prep. To assure that the patient will be able to dialyze and that she would have adequate flow, I thought it would be advisable to go ahead and place a catheter, hopefully will be needed only for the very short term. She was reprepped and redraped and the right internal jugular vein was located with duplex ultrasound and I demonstrated normal compressibility along with normal caliber and venous flow. A small incision was made at the base of the neck there on the right and through that with continuous ultrasound guidance, a micropuncture needle and guidewire were inserted into the internal jugular vein. This was documented with a paper printout from the ultrasound device. Ultrasound images were interpreted entirely by the operating surgeon and the recording is to be kept in the patient's chart. Catheter exchanges and a larger guidewire were then made and then dilators were passed over the guidewire up to a dilator peel-away introducer sheath. I chose a 19-cm HemoSplit, made an incision beneath the clavicle and placed the catheter in a subcutaneous tunnel up to the cervical incision and then inserted the catheter through the peel-away sheath as it was removed. The catheter came to rest deeply in the right atrium in good position and there was no kinking or other complication involving the catheter. The catheter was accessed and aspirated, free return of blood confirmed. It was then flushed with saline and heparin locked, clamped and capped. It was sutured to the skin near the entry site with 2-0 Prolene and the cervical incision approximated with interrupted inverted 3-0 Vicryl and Dermabond glue. It was dressed with Maxorb Ag, Tegaderm, and Cavilon skin prep. A chlorhexidine Biopatch and standard CVL dressing was applied to the catheter at the exit site. The patient was awakened and taken to the recovery room. The patient will have a chest x-ray done there to document catheter positioning and then will go back to the outpatient department. We will consult nephrology to see about arranging her dialysis either here in [place] today or perhaps in [facility] or back to [place] tomorrow. She should be dialyzed with the fistula to determine if there is adequate arterial inflow and if there is, we should arrange for her to have her tunneled dialysis catheter removed as soon as possible. If there is not adequate flow in her fistula or OPERATIVE REPORT [id number] CLAUDIO SALEEM for some reason, it thrombosis, then she will have the catheter to dialyze with and the next step will be to schedule her for proximalized arterial inflow graft. There was no blood loss during the procedure today. Sponges, instruments, and needles were accounted for. No surgical specimen was submitted for histopathology. No drain was used. TRANSINT:[id number] Voice Confirmation ID: [id number] DOCUMENT ID: [id number] cc: Dr. Bg Juarez, Dr. Gentile in [facility] MADALYN CHEUNG MD at 1430 CC: DR. BG JUAREZ, ELIAS GENTILE and MIRANDA CA MD [id number] DICTATION DATE: 10/09/18 1343 BATCH TANK CONTROLLER: 10/09/18 1415 [facility] 10/09/18 [place] [place] [address]
== END 2018-10-09 20:20 | disposition home or self-care (01) ==
LOC: D.OPS 07:45
PROVIDERS: Surgery; ATTEND Internal Medicine Nephrology
DX: T82.590A Other mechanical complication of surgically created arteriovenous fistula, initial encounter (principal); Y83.9 Surgical procedure, unspecified as the cause of abnormal reaction of the patient, or of later complication, without mention of misadventure at the time of the procedure; N18.6 End stage renal disease